=== PATIENT | female | born 1935 | race Hispanic/Latino ===

== ENCOUNTER 2017-07-26 14:58 | Outpatient (CLI) | payer MEDICARE ==
--- NOTE | 2017-07-26 16:08 | Cat Scan Report ---
Cranial CT without contrast. History: Dizziness. Findings: There is no evidence of acute hemorrhage or infarct. Moderate senescent changes are present. There are no masses or extra-axial collections. The posterior fossa is normal. The the calvarium is intact. Impression: No acute findings.
== END 2017-07-26 14:59 | disposition home or self-care (01) ==
LOC: CT 14:58
PROVIDERS: ATTEND Internal Medicine
DX: I62.00 Nontraumatic subdural hemorrhage, unspecified (principal); R42 Dizziness and giddiness
CPT/HCPCS: 70450